=== PATIENT | female | born 1990 | race Asian ===

== ENCOUNTER 2016-09-28 23:38 | Emergency (ER) | payer MEDICAID ==
[~2016-09-28] VITALS: Ht 152.4 cm; Wt 93.0 kg
[2016-09-28 23:53] VITALS: BP 154/117; PULSE 86; RESP 14; TEMP 98.9; O2SAT 92
--- NOTE | 2016-09-28 23:59 | NUR ---
Patient to ER bed 8 to gown for evaluation. Side rails up. Report given to JACI BAZAN.
[2016-09-29] MEDS ORDERED: cloNIDine HCL 0.1 MG TABLET PO ONE
--- NOTE | 2016-09-29 00:04 | NUR ---
ER at bedside examining patient.
--- NOTE | 2016-09-29 00:05 | NUR ---
Pt brought in by aunt in stable condition. Pt c/o bilat feet swelling, ROSAS x1 wk and difficulty breathing. Pt stated that she does have a hx of HTN and has not been taking her meds x8 mnths due to insurances. -chest pain -sob. Placed pt on awake overnight monitor. No acute distress noted at this time, will continue to monitor
[2016-09-29 00:46] LABS: BASOPHILS # (AUTO) 0.1 K/uL (0.0-0.2); BASOPHILS % (AUTO) 0.7 % (0.0-2.0); EOSINOPHILS # (AUTO) 0.3 K/uL (0.0-0.4); EOSINOPHILS % (AUTO) 3.6 % (0.0-4.0); HEMOGLOBIN 12.1 g/dL (12.0-16.0); LYMPHOCYTES # (AUTO) 3.2 K/uL (1.0-5.5); LYMPHOCYTES % (AUTO) 39.6 % (20.5-51.5); MEAN CORPUSCULAR HEMOGLOBIN 29 pg (27-31); MEAN CORPUSCULAR HGB CONC 34 % (32-36); MEAN CORPUSCULAR VOLUME 88 fL (79.0-98.0); MONOCYTES # (AUTO) 0.9 K/uL (0.0-1.0); MONOCYTES % (AUTO) 10.8 % (1.7-9.3); NEUTROPHILS # (AUTO) 3.6 K/uL (1.8-7.7); NEUTROPHILS % (AUTO) 45.3 % (40.0-70.0); PLATELET COUNT (AUTO) 380 K/uL (130-430); RED BLOOD CELL COUNT(AUTO) 4.11 MIL/uL (4.2-6.2); RED CELL DISTRIBUTION WIDTH 15.1 % (9.0-15.0); WHITE BLOOD COUNT (AUTO) 8.1 K/uL (4.8-10.8)
[2016-09-29 00:48] LABS: BILIRUBIN,URINE NEGATIVE (NEGATIVE); BLOOD, URINE 1+ (NEGATIVE); CLARITY/URINE CLEAR (CLEAR); GLUCOSE,URINE NEGATIVE (NEGATIVE); KETONES,URINE NEGATIVE (NEGATIVE); LEUKOCYTE ESTERASE ,URINE TRACE (NEGATIVE); NITRITE, URINE NEGATIVE (NEGATIVE); PH,URINE 6.5 (5.0-8.0); PROTEIN URINE NEGATIVE (NEGATIVE); UROBILINOGEN,URINE 0.2 (0.2-1.0)
[2016-09-29 00:49] LABS: CALCIUM 8.9 mg/dL (8.4-11.0); CREATININE 0.75 mg/dL (0.55-1.30)
[2016-09-29 00:51] LABS: COLOR,URINE STRAW (YELLOW)
[2016-09-29 00:55] LABS: ALBUMIN 3.6 g/dL (3.4-4.8); PROTHROMBIN TIME 10.4 SECS (9.5-12.5); TOTAL BILIRUBIN 0.3 mg/dL (0.0-1.0); TOTAL PROTEIN, SERUM 7.4 g/dL (6.4-8.3)
[2016-09-29 01:10] LABS: BACTERIA,URINE RARE /HPF (None Seen)
[2016-09-29] MEDS ORDERED: ALBUTEROL SULFATE 0.083% 2.5 MG/3 ML VIAL.NEB INH ONE (01:45)
[2016-09-29 02:51] VITALS: BP 161/93; PULSE 75; RESP 12; TEMP 98.9; O2SAT 96
--- NOTE | 2016-09-29 02:51 | NUR ---
Patient given written and verbal discharge instructions and verbalizes understanding. ER MD discussed with patient the results and treatment provided. Given copies of tests performed in ER. Patient in stable condition. ID arm band removed. IV catheter removed intact and dressing applied, no active bleeding. Rx of AMLODIPINE given. Patient educated on pain management and to follow up with PMD. Pain Scale 0/10. Opportunity for questions provided and answered.
== END 2016-09-29 02:51 | disposition home or self-care (01) ==
LOC: SED 23:38
DX: I10 Essential (primary) hypertension (principal); M25.472 Effusion, left ankle; M25.471 Effusion, right ankle; J45.909 Unspecified asthma, uncomplicated; F31.9 Bipolar disorder, unspecified; Z88.2 Allergy status to sulfonamides; Z88.5 Allergy status to narcotic agent
CPT/HCPCS: 36415; 71010; 80053; 81000-TC; 83880; 84484; 85025; 85610-TC; 93005; 94640; 99285